=== PATIENT | male | born 1975 | race Caucasian/White ===

== ENCOUNTER 2020-05-19 06:49 | Inpatient (IN) ==
--- NOTE | 2020-05-13 16:00 | PAT Medication Instructions ---
Medication Instructions Date of Service May 13, 2020 Home Medications amlodipine 5 mg tablet 5 mg PO QAM atorvastatin 10 mg tablet 10 mg PO QAM dulaglutide 0.75 mg/0.5 mL subcutaneous pen injector 0.75 mg SQ WK irbesartan 300 mg tablet 300 mg PO QPM Probiotic 1 cap PO QAM Continue as directed dulaglutide 0.75 mg/0.5 mL subcutaneous pen injector 0.75 mg SQ WK DO NOT take the morning of surgery Probiotic 1 cap PO QAM Take morning of surgery With a small sip of water, OTHERWISE NOTHING TO EAT OR DRINK AFTER MIDNIGHT: amlodipine 5 mg tablet 5 mg PO QAM atorvastatin 10 mg tablet 10 mg PO QAM Take evening before surgery irbesartan 300 mg tablet 300 mg PO QPM Other Notes If you have any questions please call us at [phone] or [phone] or [phone] or [phone]
--- NOTE | 2020-05-14 08:55 | Anesthesiology Consultation ---
Date of Service May 14, 2020 Assessment & Plan (1) Encounter for pre-operative examination: Chart Review Chart Review: Acceptable Risk for Surgery (pending preop Covid testing results from 05/14/20) and Patient seen in Pre Admission Testing - Check BSG AM DOS Per [facility] appt 05/14/20, patient denies any recent travel. No known Covid positive contacts or Covid related symptoms. Covid testing done at [facility] appt on 05/14/20. Educated on importance of self quarantining, social distancing and wearing mask in public both for the patient and household contacts. Teaching & Discussion Pre-Anesthesia Teaching/Discussion Notes: Instructed NPO after midnight before surgery,except medications with 15 cc of water. Medication instructions provided according to the [facility] guidelines. History Surgery Operation Date: 05/19/20 09:15 Proposed Procedures p Right Robotic Laparoscopic Assisted Partial Nephrectomy - Kilo Garcia MD Height/Weight Height: 5 ft 10 in Weight: 94.1 kg Allergies Allergy/AdvReac Type Severity Reaction Status Date / Time No Known Allergies Allergy Verified 05/11/20 10:49 Medications Home Medications Medication Instructions Recorded Confirmed Last Taken amlodipine 5 mg tablet 5 mg PO QAM 04/30/20 05/11/20 Unknown atorvastatin 10 mg tablet 10 mg PO QAM 04/30/20 05/11/20 Unknown dulaglutide 0.75 mg/0.5 mL 0.75 mg SQ WK 04/30/20 05/11/20 Unknown subcutaneous pen injector irbesartan 300 mg tablet 300 mg PO QPM 04/30/20 05/11/20 Unknown Probiotic 1 cap PO QAM 05/11/20 05/11/20 Unknown Past Medical History Medical History (Updated 05/14/20 @ 09:21 by Sosa Delaney PA-C) DM type 2 (diabetes mellitus, type 2) NIDDM- well controlled and stable History of recent pneumonia Pneumonia in 02/2020- developed an empyema with this and required thoracoscopic drainage and chest tube drainage - was admitted to [facility]- treated with abxs. Pt feels much better - no residual symptoms HTN (hypertension) Hyperlipemia Osteoarthritis Renal mass Sleep apnea "mild" -- no device - was in process of evaluating if CPAP needed but testing s postponed due to Covid Exercise / Class Metabolic Activity II 4-5 Yardwork/Stairs/Walk up hill (one flight of stairs - no chest pain or SOB) Past Family History Family History Family/Other Diabetes Father Heart disease Hypertension Mother Hypertension Other No family history of adverse response to anesthesia Past Surgical History Surgical History History of thoracic surgery recent pneumonia w/ empyema - required thoracoscopic and chest tube drainage Past Anesthesia History No Hx of Anesthesia Complications and No Family Hx of Anesthesia Complications History of PONV No Hx of PONV and No Hx of Motion Sickness Social History Smoking Status: Current some day smoker tobacco type: cigars Smoking cigarettes per day: Smoke cigars occasionally (nothing recently)- social smoker Do You Dip or Chew Tobacco: No Hx Alcohol Use: Yes Alcohol type: beer alcohol intake frequency: a few times a week Hx Substance Use: No substance use type: does not use Review of Systems Mild MILANA Patient denies chest pain, shortness of breath, dyspnea on exertion, reflux, cough, wheezing, palpitations. No hx of seizures, stroke, VA. No hx of blood clots or blood transfusions Physical Exam Vital Signs VITALS BP 121/77 P 76 TEMP 97.7 SP02 100% RESP 16 Constitutional no acute distress ENMT Mouth: no TMJ clicking Thyromental Distance: > or= 3.5 Finger Breadths (4.0) Mallampati Class: I Denies missing teeth Neck neck extension not limited Respiratory normal respiratory effort; no respiratory distress Auscultation: lungs clear to auscultation bilaterally and + diminished lung sounds (LLL); no wheezes Cardiovascular Rate/Rhythm: regular rate and regular rhythm Heart Sounds: no murmur Vessels: no carotid bruit Musculoskeletal Spine: no pain with cervical ROM Neurologic moves all extremities Psychiatric Orientation: alert Testing Laboratory Results 05/14/20 09:15 05/14/20 09:15 Hemoglobin A1c 5.1 % (4.5-5.6) 05/14/20 09:15 Blood Type O Negative 05/14/20 09:15 Antibody Screen NEGATIVE 05/14/20 09:15 04/30/20= UA: negative Electrocardiogram Date: 05/14/20 Findings: + NSR @ (67) Chest X-Ray Date: 05/14/20 Findings: + NAD There is elevation of the lateral margin of the left hemidiaphragm, likely chronic. There are linear opacities at the left lung base, likely representing atelectasis/scarring. Correlation with prior radiographs if available would be of benefit to confirm the suspected chronic nature of the findings.. There is no lobar consolidation. There is no failure. There are no significant pleural effusions
[2020-05-14 09:42] LABS: Basophils # (auto) 0.01 K/uL (0-0.2); Basophils % (auto) 0.2 %; Eosinophils # (auto) 0.13 K/uL (0-0.5); Eosinophils % (auto) 2.1 %; Hematocrit (blood only) 44.1 % (42-52); Hemoglobin 15.4 g/dL (14.0-18.0); Immature Granulocytes # (auto) 0.02 K/uL (0.00-0.02); Immature Granulocytes % (auto) 0.3 %; Lymphocytes # (auto) 2.46 K/uL (1.2-3.4); Lymphocytes % (auto) 39.5 %; Mean Corpuscular Hemoglobin 31.1 pg (25-34); Mean Corpuscular Hgb Conc 34.9 g/dL (32-36); Mean Corpuscular Volume 89.1 fL (80-100); Mean Platelet Volume 9.4 fL (7.4-10.4); Monocytes # (auto) 0.55 K/uL (0.11-0.59); Monocytes % (auto) 8.8 %; Neutrophils # (auto) 3.05 K/uL (1.4-6.5); Neutrophils % (auto) 49.1 %; Platelet Count 171 K/uL (130-400); RDW Coefficient of Variation 13.8 % (11.5-14.5); RDW Standard Deviation 45.1 fL (36.4-46.3); Red Blood Count 4.95 M/uL (4.7-6.1); White Blood Count 6.22 K/uL (4.8-10.8)
--- NOTE | 2020-05-14 09:42 | XRay Report ---
XR chest Pre-admission PA/Lat CLINICAL HISTORY: Preoperative chest COMPARISON STUDY: No previous studies for comparison. FINDINGS: The heart is normal in size. There is elevation of the lateral margin of the left hemidiaph ragm, likely chronic. There are linear opacities at the left lung base, likely representing atelectas is/scarring. Correlation with prior radiographs if available would be of benefit to confirm the suspe cted chronic nature of the findings.. There is no lobar consolidation. There is no failure. 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 No evidence of failure. No evidence of lobar consolidation ACT 112: Negative or not required by law. Electronically signed by: Jona Vela M.D. 05/14/2020 9:40 AM
[2020-05-14 09:52] LABS: Estimated Average Glucose 100 mg/dl; Hemoglobin A1C 5.1 % (4.5-5.6)
[2020-05-14 10:28] LABS: BUN Creatinine Ratio 14.4 (10-20); Calcium 9.3 mg/dl (8.5-10.1); Creatinine Clr Calc Pharmacy 90.3 ml/min; Est GFR (Non-African American) 73.3; Potassium 4.3 mmol/L (3.5-5.1)
--- NOTE | 2020-05-15 05:30 | Electrocardiogram Report ---
Test Reason : Blood Pressure : / mmHG Vent. Rate : 067 BPM Atrial Rate : 067 BPM P-R Int : 132 ms QRS Dur : 088 ms QT Int : 388 ms P-R-T Axes : 023 059 029 degrees QTc Int : 409 ms Normal sinus rhythm Normal ECG No previous ECGs available Confirmed by Cesar Yao ([id number]) on 05/15/2020 5:30:25 AM Referred By: Kilo Garcia Confirmed By:Cesar Yao
[~2020-05-19 06:49] MED LIST: CEFAZOLIN 2000MG 2,000 MG/15 ML SYR IV SCH; LACTATED RINGER'S 1,000 ML IV SCH
--- NOTE | 2020-05-19 07:26 | History & Physical Bridge Note ---
Date of Service May 19, 2020 History & Physical Bridge Note I have examined the patient, reviewed the History & Physical and in the interval since the performance of the History & Physical I have noted the following changes of clinical significance: no changes noted
[2020-05-19] MEDS ORDERED: PROPOFOL IV EMULSION 10 MG/ML 20 ML VIAL IV ONE (08:04)
[2020-05-19] MEDS ORDERED: LIDOCAINE HCL 2% 2 ML VIAL/AMP(20MG/ML) INFIL ONE (08:04)
[2020-05-19] MEDS ORDERED: ROCURONIUM BROMIDE 10 MG/ML 5 ML VIAL IV ONE ×3 (08:04→11:19)
[2020-05-19] MEDS ORDERED: MIDAZOLAM HCL 1 MG/ML 2ML VIAL ONE (08:04)
[2020-05-19] MEDS ORDERED: LARYING-O-JET KIT (LTA) ONE (08:04)
[2020-05-19] MEDS ORDERED: fentaNYL citrate 100 MCG/2 ML VIAL ONE ×2 (08:04→10:01)
[2020-05-19] MEDS ORDERED: ePHEDrine sulfate 50 MG/ML AMP IV PRN (08:33)
[2020-05-19] MEDS ORDERED: ONDANSETRON INJ 2 MG/ML 2 ML VIAL IV PRN ×2 (08:33→14:09)
[2020-05-19] MEDS ORDERED: METOCLOPRAMIDE HCL INJ 5 MG/ML 2 ML VIAL IV PRN (08:33)
[2020-05-19] MEDS ORDERED: HYDROmorphone INJ 2 MG/ML SYR/VIAL IV PRN (08:33)
[2020-05-19] MEDS ORDERED: ATROPINE SULFATE 0.1 MG/ML 10ML SYR IV PRN (08:33)
[2020-05-19] MEDS ORDERED: PROMETHAZINE HCL 12.5 MG in SODIUM CHLORIDE 0.9% 50 ML IV PRN (08:33)
[2020-05-19] MEDS ORDERED: BUPIVACAINE 0.5 % 5 MG/1 ML MPF 30ML VIAL ONE (08:50)
[2020-05-19] MEDS ORDERED: ePHEDrine sulfate 50 MG/ML SYR ONE (09:59)
[2020-05-19] MEDS ORDERED: GLYCOPYRROLATE 0.2 MG/ML VIAL ONE (09:59)
[2020-05-19] MEDS ORDERED: NEOSTIGMINE METHYLSULFATE 5 MG/5 ML SYR ONE (09:59)
[2020-05-19] MEDS ORDERED: MANNITOL 25% 12.5 GM/50 ML VIAL IV ONE ×2 (09:59→10:02)
[2020-05-19] MEDS ORDERED: ONDANSETRON INJ 2 MG/ML 2 ML VIAL ONE (09:59)
[2020-05-19] MEDS ORDERED: DEXAMETHASONE SOD INJ 4 MG/ML VIAL ONE (09:59)
[2020-05-19] MEDS ORDERED: PHENYLEPHRINE 100MCG/ML 5ML SYR ONE (09:59)
[2020-05-19] MEDS ORDERED: HYDROmorphone INJ 2 MG/ML SYR/VIAL ONE (10:01)
[2020-05-19] MEDS ORDERED: FLOSEAL HEMOSTATIC MATRIX 10ML TOP ONE (12:02)
[2020-05-19] MEDS ORDERED: SURGICEL ABSORB HEMOSTAT 2IN X 14IN TOP ONE (12:02)
[2020-05-19] MEDS ORDERED: TISSEEL FIBRIN SEALANT 10ML TOP ONE (12:02)
[2020-05-19] MEDS: fentaNYL citrate 100 MCG/2 ML VIAL IV PRN ×4 (12:50→13:05)
[2020-05-19 13:06] LABS: Basophils # (auto) 0.01 K/uL (0-0.2); Basophils % (auto) 0.1 %; Eosinophils # (auto) 0.02 K/uL (0-0.5); Eosinophils % (auto) 0.2 %; Hematocrit (blood only) 42.6 % (42-52); Immature Granulocytes # (auto) 0.02 K/uL (0.00-0.02); Immature Granulocytes % (auto) 0.2 %; Lymphocytes # (auto) 1.24 K/uL (1.2-3.4); Lymphocytes % (auto) 11.7 %; Mean Corpuscular Hemoglobin 31.1 pg (25-34); Mean Corpuscular Volume 88.2 fL (80-100); Mean Platelet Volume 9.2 fL (7.4-10.4); Monocytes # (auto) 0.19 K/uL (0.11-0.59); Monocytes % (auto) 1.8 %; Neutrophils # (auto) 9.13 K/uL (1.4-6.5); Platelet Count 161 K/uL (130-400); RDW Coefficient of Variation 13.6 % (11.5-14.5); RDW Standard Deviation 44.4 fL (36.4-46.3); Red Blood Count 4.83 M/uL (4.7-6.1); White Blood Count 10.61 K/uL (4.8-10.8)
--- NOTE | 2020-05-19 13:07 | Operative Report ---
PG Post Operative Report Pre & Post Diagnosis Operation Date: 05/19/20 08:50 Pre-Op Diagnosis: Right Renal Mass Post-Op Diagnosis: Right Renal Mass I identified the patient and participated in the time-out.: Yes Procedure Operation Date: 05/19/20 08:50 Actual Procedures p Robotic-assisted Laparoscopic Right Partial Nephrectomy(Right) - Kilo Garcia MD Surgeon Shun Garcia MD Ring Conductor Guillermo Woodard; Oriana Arriaga; Radha Boyd Estimated Blood Loss 50 Findings Consistent with Post-Op Diagnosis Specimens Right upper pole renal mass Description of Procedure Patient was identified in the preoperative holding area, appropriate informed consents reviewed and completed and he was transported to the operating suite. Upon arrival received appropriate preoperative antibiotics in the form of Ancef. Adequate general anesthesia was achieved and he was placed in a left side down right side up lateral decubitus position and padded and braced in standard fashion. Following sterile prep and drape a Veress needle was passed into the right upper quadrant and the abdomen insufflated to 15 mmHg. I then marked my intended port locations and began by inserting a 12 mm Visiport just lateral to the rectus border approximately 5 cm superior to the umbilicus. Inspection revealed no significant adhesions to impede our ability to place the remainder of our ports. I placed a robotic port just under the costal margin just lateral to the rectus margin. I also placed a second robotic port inferior by approximately 5 cm in lateral by approximately 3 cm from the camera port. 2-12 mm certified ophthalmic surgical assistant ports were placed close to the midline and a 5 mm subxiphoid incision was made to accommodate a liver retractor. After docking the robot I began the case by mobilizing a few adhesions inferior to the kidney. I then mobilized the kidney medially by incising the white line of Toldt and dissecting this off of the superior and anterior surface of the kidney. Immediately posterior to the colon I encountered the duodenum which was kocherized exposing the inferior vena cava and renal vasculature. I was able to identify the gonadal vein piercing into the IVC, unfortunately, this also had numerous other veins protruding from it including a vein that appeared to be draining the kidney. The true renal vein was just superior to it and was solitary in nature. There was a renal artery identified immediately posterior to the main renal vein, there additionally was a small renal arterial branch which was just superior to the main renal vein. I skeletonized all of the structures completely. I then turned my attention to exposure of the mass. This was a posterior upper pole mass which was predominantly endophytic. I exposed the anterior surface of the kidney and the upper pole and identified renal parenchyma. Of note, he had relatively sticky fat adherent to the capsule of the kidney and dissection and exposure of the kidney was tedious. I was able to meticulously work my way through this without any significant bleeding and with out violating the renal capsule. After clearing the entire anterior surface and lateral aspect of the kidney I continue to move around the posterior aspect of the upper pole carefully the medial aspect of the kidney from the more medial adrena l gland. I then performed a laparoscopic ultrasound which identified the mass in this area that I had been dissecting. I marked my intended capsulotomy utilizing Bovie electrocautery. I then continue to posterior dissection until I felt I had a clear margin and normal/healthy renal parenchyma to sew to after dissecting and removing the mass. I preplaced 2stitches for renal reconstruction. These were placed out of my immediate field of vision. We then administered 12.5 g of mannitol before placing a series of bulldog clamps and marking the time. The first bulldog clamp was a short straight clamp placed across the main radial artery. The second was a long straight clamp placed over the combined main renal vein and branch artery. The third was a short curved clamp placed across the gonadal vein complex. I then turned my attention to resection of the mass. I incised my previously marked capsulotomy and proceeded to carefully work my way under the posterior and deep aspect of the mass. Constant visualization and vigilance allowed me to avoid and protrude upon the mass and it clamping was excellent to allow excellent hemostasis. After resecting the upper portion of the kidney including the mass I move this out of my field of view and began reconstruction of the kidney utilizing the preplaced sutures. 3 passes across the defect was sufficient to reapproximate the tissue utilizing a sliding clip technique. I unclamped the kidney and marked the time at 12 minutes of warm ischemic time. 12.5 g of mannitol was then administered post clamping. Hemostasis was excellen t. FloSeal was placed across the defect as well as a Tisseel to cover it. I reapproximated the Gerota's fascia over the defect. Hilar structures were inspected and found to be intact and hemostatic. A drain was placed in the lateral aspect of the abdomen. The specimen was collected in an Endo Catch bag and extracted through slight expansion of the camera port. The fascia of all 12 mm ports and the extraction site was closed utilizing 0 Vicryl. Skin was closed utilizing 4-0 Monocryl and Dermabond. All incisions were infiltrated with half percent Marcaine. The drain was sutured in place with a 2-0 silk. The case was subsequently concluded and the patient extubated. There were no complications. Guillermo Woodard assisted me throughout the villalta portions of the case and Oriana Arriaga and Radha Boyd were present and scrubbed from incision to closure. I attest to the content of the Intraoperative Record and any orders documented therein. Any exceptions are noted below.
[2020-05-19 13:26] LABS: BUN Creatinine Ratio 9.6 (10-20); Calcium 8.9 mg/dl (8.5-10.1); Creatinine Clr Calc Pharmacy 66.5 ml/min; Est GFR (African American) 59.4; Est GFR (Non-African American) 51.3; Potassium 5.3 mmol/L (3.5-5.1)
--- NOTE | 2020-05-19 13:44 | Anesthesiology Progress Note ---
Date of Service May 19, 2020 Anesthesia Post Procedure Vital Signs Vital Signs: Temp Pulse Pulse Resp BP BP Pulse Ox 05/19/20 13:35 72 16 119/73 99 05/19/20 13:25 36.2 C L 89 15 131/85 98 05/19/20 13:13 59 L 13 114/75 99 05/19/20 13:00 61 15 128/77 100 05/19/20 12:50 61 17 128/78 100 05/19/20 12:40 36.2 C L 94 H 10 L 137/84 98 05/19/20 07:29 36.5 C 104 H 18 133/83 99 Pain Intensity Right Shoulder: Pain Intensity: 4 Abdomen: Pain Intensity: 4 Transfer of Care Handoff Completed per policy Notes Mental Status: alert / awake / arousable and participated in evaluation Patient Amnestic to Procedure: Yes Nausea / Vomiting: adequately controlled Pain: adequately controlled Airway Patency, RR, SpO2: stable & adequate BP & HR: stable & adequate Hydration State: stable & adequate Anesthetic Complications: no major complications apparent
[2020-05-19 14:07] LABS: Mean Corpuscular Hgb Conc 35.2 g/dL (32-36)
[2020-05-19] MEDS ORDERED: OXYCODONE HCL IR 5 MG TAB (IMMEDIATE RELEASE) PO PRN (14:09)
[2020-05-19] MEDS ORDERED: MoRPHine SULFATE 2 MG/ML CARP IV PRN (14:15)
[2020-05-19] MEDS ORDERED: PHARMACY GLYCEMIC MGMT CONSULT PRN (14:41)
[2020-05-19] MEDS ORDERED: CARBOHYDRATES FOR HYPOGLYCEMIA PO PRN (14:45)
[2020-05-19] MEDS ORDERED: NovoLIN-N (NPH) PER UNIT CHARGE SQ ONE (14:45)
[2020-05-19] MEDS ORDERED: GLUCAGON FOR INJ 1 MG VIAL SQ PRN (14:45)
[2020-05-19] MEDS ORDERED: GLUCOSE 10 TABS/TUBE PO PRN (14:45)
[2020-05-19] MEDS ORDERED: DEXTROSE 50% 50 ML SYRINGE IV PRN (14:45)
[2020-05-19] MEDS ORDERED: GLUCOSE 40% GEL 15 GM TUBE PO PRN (14:45)
[2020-05-19] MEDS: LACTATED RINGER'S 1,000 ML IV SCH ×2 (16:10→22:25)
[2020-05-19] MEDS: ACETAMINOPHEN 1,000 MG/100 ML VIAL IV SCH (17:22)
[2020-05-19] MEDS: CEFAZOLIN 2000MG 2,000 MG/15 ML SYR IV SCH (17:22)
[2020-05-19] MEDS: INSULIN ASPART 100 UNITS/ML 3 ML PEN SC SCH ×2 (18:24→21:30)
[2020-05-19] MEDS: IRBESARTAN 150 MG TAB PO SCH (21:30)
[2020-05-19] MEDS: MoRPHine SULFATE 2 MG/ML CARP IV PRN (21:38)
[2020-05-20] MEDS: CEFAZOLIN 2000MG 2,000 MG/15 ML SYR IV SCH (00:31)
[2020-05-20] MEDS: ACETAMINOPHEN 1,000 MG/100 ML VIAL IV SCH ×4 (00:31→23:23)
[2020-05-20] MEDS: MoRPHine SULFATE 2 MG/ML CARP IV PRN (00:42)
[2020-05-20] MEDS: OXYCODONE HCL IR 5 MG TAB (IMMEDIATE RELEASE) PO PRN ×2 (04:09→11:38)
[2020-05-20 05:49] LABS: Eosinophils # (auto) 0.01 K/uL (0-0.5); Eosinophils % (auto) 0.1 %; Hemoglobin 13.7 g/dL (14.0-18.0); Immature Granulocytes # (auto) 0.02 K/uL (0.00-0.02); Immature Granulocytes % (auto) 0.2 %; Lymphocytes # (auto) 1.35 K/uL (1.2-3.4); Lymphocytes % (auto) 12.6 %; Mean Corpuscular Hemoglobin 30.5 pg (25-34); Mean Corpuscular Hgb Conc 35.1 g/dL (32-36); Mean Corpuscular Volume 86.9 fL (80-100); Mean Platelet Volume 9.5 fL (7.4-10.4); Monocytes # (auto) 1.03 K/uL (0.11-0.59); Monocytes % (auto) 9.6 %; Neutrophils # (auto) 8.34 K/uL (1.4-6.5); Neutrophils % (auto) 77.5 %; Platelet Count 167 K/uL (130-400); RDW Coefficient of Variation 13.3 % (11.5-14.5); RDW Standard Deviation 42.9 fL (36.4-46.3); Red Blood Count 4.49 M/uL (4.7-6.1); White Blood Count 10.75 K/uL (4.8-10.8)
[2020-05-20 06:21] LABS: BUN Creatinine Ratio 11.7 (10-20); Calcium 8.6 mg/dl (8.5-10.1); Creatinine Clr Calc Pharmacy 78.3 ml/min; Est GFR (African American) 72.3; Est GFR (Non-African American) 62.4; Potassium 4.4 mmol/L (3.5-5.1)
--- NOTE | 2020-05-20 08:15 | Anesthesiology Progress Note ---
Date of Service May 20, 2020 Anesthesia Post Procedure Vital Signs Vital Signs: Temp Pulse Pulse Resp BP Pulse Ox 05/20/20 06:39 37.0 C 87 18 126/80 96 05/20/20 04:01 37.2 C 86 17 125/78 96 05/19/20 23:22 37.1 C 96 H 18 125/82 95 05/19/20 19:45 36.9 C 94 H 18 119/77 97 05/19/20 16:39 36.4 C L 100 H 18 134/91 96 05/19/20 15:39 36.5 C 91 H 18 125/83 96 05/19/20 14:39 37.1 C 90 18 119/75 93 05/19/20 14:17 91 H 16 114/70 92 05/19/20 13:50 36.4 C L 90 16 117/71 91 05/19/20 13:35 72 16 119/73 99 05/19/20 13:25 36.2 C L 89 15 131/85 98 05/19/20 13:13 59 L 13 114/75 99 05/19/20 13:00 61 15 128/77 100 05/19/20 12:50 61 17 128/78 100 05/19/20 12:40 36.2 C L 94 H 10 L 137/84 98 Pain Intensity Right Shoulder: Pain Intensity: 0 Notes Mental Status: alert / awake / arousable Patient Amnestic to Procedure: Yes Nausea / Vomiting: adequately controlled Pain: adequately controlled Airway Patency, RR, SpO2: stable & adequate BP & HR: stable & adequate Hydration State: stable & adequate Anesthetic Complications: no major complications apparent and Pt Satisfied with anesthetic care
[2020-05-20] MEDS: LACTATED RINGER'S 1,000 ML IV SCH ×2 (08:19→17:47)
[2020-05-20] MEDS: SACCHAROMYCES BOULARDII 250 MG CAP PO SCH (08:43)
[2020-05-20] MEDS: ATORVASTATIN 10 MG TAB PO SCH (08:43)
[2020-05-20] MEDS: AMLODIPINE BESYLATE 5 MG TAB PO SCH (08:43)
[2020-05-20] MEDS: INSULIN ASPART 100 UNITS/ML 3 ML PEN SC SCH ×4 (08:43→20:36)
--- NOTE | 2020-05-20 10:29 | Urology Progress Note ---
Date of Service May 20, 2020 Assessment & Plan (1) Renal mass: Postop day #1 status post right robotic partial nephrectomy Ambulate [place] out Likely drain removal later today Labs stable Possible DC home tomorrow if he continues to progress appropriately Admission and Anticipated Discharge Date Admission Date: May 19, 2020 Subjective Recovering appropriately from his robotic right partial nephrectomy yesterday Still with pain Anxious to get out of bed and ambulate Labs stable Good urine output, low drain output Physical Exam Physical Exam: Incisions appropriate LATRELL serosanguineous Urine clear Abdomen soft Results & Data ([facility]) Vital Signs (Past 12 Hours) Vital Signs Temp Pulse Pulse Resp BP Pulse Ox 05/20/20 06:39 37.0 C 87 18 126/80 96 05/20/20 04:01 37.2 C 86 17 125/78 96 05/19/20 23:22 37.1 C 96 H 18 125/82 95 PG Care Time/CCT Total # of Minutes Spent Total Time Spent with Patient: Total time spent is greater than 50% in coordination of care (as documented) at patient's floor/unit and/or counseling patient: Coding Level of Care Code None Diagnoses Renal mass N28.89
--- NOTE | 2020-05-20 12:21 | Pharmacy Report ---
Pharmacy Glycemic Short Note 2 - Date of Service May 20, 2020 - Glycemic Short BSG Results (Last 24 hours): 05/19/20 05/19/20 05/19/20 12:47 12:56 17:38 Glucose 158 H POC Glucose 162 H 152 H 05/19/20 05/20/20 05/20/20 20:15 05:27 08:03 Glucose 95 POC Glucose 141 H 120 H 05/20/20 12:08 Glucose POC Glucose 119 H OUTPATIENT ANTIDIABETIC REGIMEN: * Trulicity 0.75 mg once weekly on Mondays * A1c = 5.1 % (05/14/20) ASSESSMENT: * Mayank is POD #1 status post right robotic partial nephrectomy * He received a one time dose of NPH 30 units yesterday to cover for steroid induced hyperglycemia (DXM 8 mg IV in OR) * Fasting BSG of 120 mg/dL is at goal. No further basal insulin will be ordered. * Post prandial BSGs are also at goal. I will loosen Novolog parameters since s teroid effect has worn off. PLAN FOR INPATIENT GLYCEMIC CONTROL: * Basal insulin * none * Bolus insulin * NovoLog per scale ACHS or Q6hrs while NPO * Goal Range: Low 110 mg/dL - High 140 mg/dL * Correction Factor: 20 mg/dL/unit * Nutritional / Prandial insulin per carb ratio of 1 unit per 8 grams CHO consumed PLAN FOR DISCHARGE: * A1c of 5.1% indicates excellent glycemic control * It is reasonable to continue home regimen on discharge as long as patient does not report frequent hypoglycemia
[2020-05-20] MEDS: IRBESARTAN 150 MG TAB PO SCH (20:35)
[2020-05-21] MEDS: LACTATED RINGER'S 1,000 ML IV SCH (04:07)
[2020-05-21 05:55] LABS: Eosinophils # (auto) 0.08 K/uL (0-0.5); Hematocrit (blood only) 37.6 % (42-52); Hemoglobin 13.2 g/dL (14.0-18.0); Immature Granulocytes # (auto) 0.02 K/uL (0.00-0.02); Immature Granulocytes % (auto) 0.3 %; Lymphocytes % (auto) 27.5 %; Mean Corpuscular Hemoglobin 31.1 pg (25-34); Mean Corpuscular Hgb Conc 35.1 g/dL (32-36); Mean Corpuscular Volume 88.7 fL (80-100); Mean Platelet Volume 9.2 fL (7.4-10.4); Monocytes # (auto) 0.72 K/uL (0.11-0.59); Neutrophils # (auto) 4.98 K/uL (1.4-6.5); Neutrophils % (auto) 62.2 %; Platelet Count 135 K/uL (130-400); RDW Coefficient of Variation 13.6 % (11.5-14.5); RDW Standard Deviation 44.6 fL (36.4-46.3); Red Blood Count 4.24 M/uL (4.7-6.1)
[2020-05-21 06:24] LABS: BUN Creatinine Ratio 11.7 (10-20); Creatinine Clr Calc Pharmacy 77.7 ml/min; Est GFR (African American) 71.7; Est GFR (Non-African American) 61.8
[2020-05-21] MEDS: ACETAMINOPHEN 1,000 MG/100 ML VIAL IV SCH (07:37)
--- NOTE | 2020-05-21 08:47 | Urology Progress Note ---
Date of Service May 21, 2020 Assessment & Plan (1) Renal mass: 44yo M who is POD #2 s/p right robotic partial nephrectomy. -Patient is clinically progressing as expected -Afebrile, labs appropriate -Remove LATRELL -Continue diet and pain control -Continue ambulation -Stable for discharge today -Will arrange outpatient follow-up -Patient agreeable to above plan. All questions were answered. Admission and Anticipated Discharge Date Admission Date: May 19, 2020 Subjective 44yo M who is POD #2 s/p right robotic partial nephrectomy. Patient is doing well, eager to go home today Still some pain, controlled with medications Has been ambulating without difficulty Denies fevers or chills Denies hematuria and dysuria Tolerating PO diet without any nausea or vomiting Good urine output LATRELL drain with no output overnight Labs reviewed: WBC- 8.0 HgB- 13.2 Cr -1.37 Review of Systems Constitutional: as per Subjective / HPI Gastrointestinal: as per Subjective / HPI Genitourinary: + as per Subjective / HPI Neurologic: as per Subjective / HPI Physical Exam Constitutional: well developed and well nourished; no acute distress Respiratory: normal respiratory effort and able to speak in complete sentences Cardiovascular: Rate/Rhythm: regular rate and regular rhythm Gastrointestinal (Abdomen): Gauze/Medipore dressing intact to right lower abdomen. LATRELL intact, with small amount of serosanguineous drainage. Incisions appropriate, Dermabond intact. Musculoskeletal: Head/Neck/Chest: normocephalic Skin: no rashes, warm and dry Neurologic: moves all extremities and awake; not confused Psychiatric: Orientation: alert, oriented x 3 and cooperative Results & Data ([facility]) Vital Signs (Past 12 Hours) Vital Signs Temp Pulse Resp BP Pulse Ox 05/21/20 07:40 36.9 C 96 H 18 134/88 96 05/21/20 00:00 36.7 C 94 H 20 126/78 93 PG Care Time/CCT Total # of Minutes Spent Total Time Spent with Patient: Total time spent is greater than 50% in coordination of care (as documented) at patient's floor/unit and/or counseling patient: Coding Level of Care Code None Diagnoses Renal mass N28.89
[2020-05-21] MEDS: AMLODIPINE BESYLATE 5 MG TAB PO SCH (09:43)
[2020-05-21] MEDS: ATORVASTATIN 10 MG TAB PO SCH (09:43)
[2020-05-21] MEDS: SACCHAROMYCES BOULARDII 250 MG CAP PO SCH (09:43)
[2020-05-21] MEDS: INSULIN ASPART 100 UNITS/ML 3 ML PEN SC SCH (09:45)
--- NOTE | 2020-05-25 08:03 | Discharge Summary ---
Date of Service May 25, 2020 Admission HPI Per Admitting Provider Admitted for a right robotic partial nephrectomy secondary to suspected renal cell carcinoma Principal Diagnosis Clear-cell renal cell carcinoma Discharge Data Allergies Allergy/AdvReac Type Severity Reaction Status Date / Time No Known Allergies Allergy Verified 05/19/20 07:20 Procedures Performed Operation Date: 05/19/20 08:50 Actual Procedures p Robotic-assisted Laparoscopic Right Partial Nephrectomy(Right) - Kilo Garcia MD Hospital Course (1) Clear cell carcinoma of right kidney: Admitted for robotic right partial nephrectomy, details of the procedure as dictated previously an operative report, however in summary he tolerated the procedure extremely well. On the morning of postoperative day 1 his [place] catheter was removed. He continued to progress and was ambulatory. He was tolerating a diet. On the morning of postoperative day #2 his drain was removed and he was discharged home in stable condition. His labs were stable with creatinine returning near baseline and hemoglobin remaining appropriately stable. Total Time Total Time Spent Total Time Spent (In Minutes): 15 Total Time Includes: Examination of the Patient, Discharge Planning, Medication Reconciliation, Communication With Other Providers and Other Discharge Plan Discharge Items Patient Disposition: Home - Self-Care Reason For Visit: Renal mass Discharge Diagnosis: Renal Mass Activity: Per Instructions section Lifting: No more than 25 pounds Bathing Comment: No tub baths. OK to shower 1 day post discharge Sexual Activity: Wait until after follow-up appointment Exercise/Sports: Wait until after follow-up appointment Driving/Machine Use: Do not drive while taking narcotic pain medication. Non-emergency contact: Surgeon and Urologist Call non-emergency contact if: your pain is not controlled, you have a fever, your temperature is above 101, your wound has increased redness, your wound has increased drainage and your wound pain has increased Follow-up/Referrals: Kilo Garcia MD [Physician] - 06/03/20 10:40 am Adriana Cuellar MD [Primary Care Provider] - Diet: Regular Addtl Attending Provider Instructions: Please take all medications as prescribed and keep all follow-ups as scheduled. Please call our office at [phone] with any questions, concerns or need to reschedule appointments for any reason. We are happy to assist you. Recovering at home: We recommend having someone with you for the first few days after surgery to help care for you. It is okay to shower tomorrow. Please avoid swimming, bathing or using hot tub until incisions are well healed. Avoid driving until you are not requiring pain medication any further. Walk at least a few times a day. Increase your distance, as you feel able. Stairs in your home are okay. Please avoid strenuous or sexual activity until your follow-up. We recommend using stool softener (i.e. Colace) to prevent constipation and straining, especially the first two weeks post operatively. Call [facility] at [phone] if you experience: Chest pain or trouble breathing (call 549 or go to the hospital). Fever of 101F or higher Symptoms of infection at incision site, including redness or swelling, warmth, or bad-smelling drainage If you have catheter, and you notice: o Bloody urine or drainage that is dark red or has large clots (Please remember a small amount of blood is normal) o No drainage from the catheter for more than 6 hours o The catheter comes out of your bladder Pain that is not controlled with medicines Pending Studies at Discharge: Yes (Pathology) Stand-Alone Forms: My [facility] Medications and DC Order Prescriptions: New docusate sodium [Colace] 100 mg capsule 100 mg PO BID Qty: 60 RF: 0 oxycodone-acetaminophen [Percocet] 5-325 mg tablet 1 tab PO Q8H PRN (Reason: pain) Qty: 14 RF: 0 Continued amlodipine 5 mg tablet 5 mg PO QAM RF: 0 irbesartan 300 mg tablet 300 mg PO QPM RF: 0 atorvastatin 10 mg tablet 10 mg PO QAM RF: 0 Trulicity 0.75 mg/0.5 mL pen injector 0.75 mg SQ WK RF: 0 Probiotic 1 cap PO QAM RF: 0 Discharge Orders: Discharge Order (Routine); Ordered 05/21/20 Ordered By: Oriana Arriaga Admission Data Admit Date/Time: 05/19/20 12:40 Attending Provider: Kilo Garcia Admit Provider: Kilo Garcia Primary Care Provider: Adriana Cuellar Other Interventions: Discharge Summary Assessment (RN) Last Done: 05/21/20 10:11 Coding Level of Care Code D/C Day Management <30 mins Diagnoses Clear cell carcinoma of right kidney C64.1
== END 2020-05-21 11:30 | disposition home or self-care (01) | DRG 658 ==
LOC: ASU 06:49 → 3N 12:40